=== PATIENT | female | born 1935 | race Caucasian/White ===

== ENCOUNTER 2017-04-24 13:02 | Outpatient (CLI) | payer MEDICARE ==
--- NOTE | 2017-04-24 14:19 | RAD ---
PA AND LATERAL VIEWS OF CHEST: Date: 04/24/17 HISTORY: Dyspnea. FINDINGS: Comparison made with exam of 10/06/11. Changes of median sternotomy are again seen. Left-sided pacemaker device remains in place. The heart size is normal. The lungs are well expanded without focal areas of consolidation, pneumothorax, or pleural effusions. There are some degenerative changes in the spine. IMPRESSION: No acute process. POS: [facility]
== END 2017-04-24 13:03 | disposition home or self-care (01) ==
LOC: RAD 13:02
PROVIDERS: ATTEND Internal Medicine Critical Care Medicine
DX: R06.00 Dyspnea, unspecified (principal)
CPT/HCPCS: 71020